=== PATIENT | male | born 1965 | race Caucasian/White ===

== ENCOUNTER → 2018-08-17 | Outpatient (CLI) | payer OTHER ==
--- NOTE | 2018-08-17 12:24 | CT ---
EXAMINATION TYPE: CT chest wo con DATE OF EXAM: 08/17/2018 COMPARISON: NONE HISTORY: Shortness of breath. History of COPD. CT DLP: 666.5 mGycm. Automated Exposure Control for Dose Reduction was Utilized. TECHNIQUE: CT scan of the thorax is performed without IV contrast. FINDINGS: LUNGS: The lungs are grossly clear, there is no concerning parenchymal mass or nodule identified. T here is no pleural effusion or pneumothorax seen. The tracheobronchial tree is patent. There are albert y minimal centrilobular emphysematous changes of the lung apices. MEDIASTINUM: Lack of IV contrast is noted to limit evaluation for mediastinal and especially hilar ad enopathy. There are no definitive greater than 1 cm hilar or mediastinal lymph nodes. No cardiomega ly or pericardial effusion is seen. Aortic root is upper limits of normal size measuring 3.9 cm. OTHER: There is partial visualization of an obstructing right renal pelvic calculus with a staghorn a ppearance measuring up to 1.9 cm with additional branches in the anterior minor calyces measuring 5 m m and 4 mm. There is mild renal sinus fat stranding and blunting of the calyces indicative of mild hy dronephrosis. There appears to be slight anterior cortical renal thinning. Liver is of decreased atte nuation compatible stenosis. IMPRESSION: 1. Partial visualization of an obstructing right renal sinus calculus with a staghorn appearance crat ing renal sinus fat stranding and mild right hydronephrosis. Chronic component is suspected as there appears to be slight anterior cortical renal thinning. 2. No focal consolidation, pleural effusion or pneumothorax and the lungs. Very minimal centrilobular emphysematous changes of the lung apices. 3. Hepatic steatosis.
== END | disposition home or self-care (01) ==
LOC: RADCTMAIN 10:59
PROVIDERS: ATTEND Internal Medicine Pulmonary Disease
DX: N13.2 Hydronephrosis with renal and ureteral calculous obstruction (principal); K76.0 Fatty (change of) liver, not elsewhere classified; G47.30 Sleep apnea, unspecified; G47.33 Obstructive sleep apnea (adult) (pediatric); R60.0 Localized edema; I83.893 Varicose veins of bilateral lower extremities with other complications; R06.02 Shortness of breath; J45.909 Unspecified asthma, uncomplicated; J44.9 Chronic obstructive pulmonary disease, unspecified; E66.01 Morbid (severe) obesity due to excess calories; Z72.0 Tobacco use
CPT/HCPCS: 71250

== ENCOUNTER → 2021-02-19 | Outpatient (CLI) | payer OTHER ==
--- NOTE | 2021-02-19 14:02 | XR ---
EXAMINATION TYPE: XR chest 2V DATE OF EXAM: 02/19/2021 COMPARISON: NONE HISTORY: Shortness of breath TECHNIQUE: Frontal and lateral views of the chest are obtained. FINDINGS: Scattered senescent parenchymal changes noted. Hyperinflation compatible with COPD. No evidence for infiltrate. No evidence for atelectasis. Heart size is stable. Mediastinal structures are stable and grossly unremarkable. No evidence for hilar prominence. Degenerative changes dorsal spine. IMPRESSION: 1. No evidence for acute pulmonary disease.
[2021-02-19 14:04] LABS: Basophils # (A) 0.1 k/uL (0-0.2); Basophils % (A) 1 %; Eosinophils # (A) 0.1 k/uL (0-0.7); Eosinophils % (A) 2 %; HCT 45.2 % (39.0-53.0); HGB 14.5 gm/dL (13.0-17.5); Lymphocytes # (A) 1.8 k/uL (1.0-4.8); Lymphocytes % (A) 24 %; MCH 28.9 pg (25.0-35.0); MCHC 32.1 g/dL (31.0-37.0); MCV 90.3 fL (80.0-100.0); Mean Platelet Volume 7.1; Monocytes # (A) 0.3 k/uL (0-1.0); Monocytes % (A) 4 %; Neutrophils # (A) 4.9 k/uL (1.3-7.7); Neutrophils % (A) 67 %; Platelet Count 208 k/uL (150-450); RDW 14.3 % (11.5-15.5); WBC 7.3 k/uL (3.8-10.6)
[2021-02-19 14:10] LABS: Calcium 9.2 mg/dL (8.4-10.2); Potassium 4.2 mmol/L (3.5-5.1); Total Bilirubin 0.2 mg/dL (0.2-1.3); Total Protein 6.9 g/dL (6.3-8.2)
[2021-02-19 14:57] LABS: Appearance,Urine Clear (Clear); Bilirubin,Urine Negative (Negative); Blood,Urine Trace (Negative); Color,Urine Yellow; Glucose,Urine (UA) 4+ (Negative); Ketones,Urine Negative (Negative); Leukocyte Esterase,Urine Negative (Negative); Mucus,Urine Rare /hpf; Nitrite,Urine Negative (Negative); PH, Urine 5.5 (5.0-8.0); Protein,Urine Negative (Negative); RBC,Urine 9 /hpf (0-5); Specific Gravity,Urine 1.019 (1.001-1.035); Squamous Epithelial Cell,Urine 1 /hpf (0-4); Urobilinogen,Urine <2.0 mg/dL (<2.0); WBC,Urine 4 /hpf (0-5)
== END | disposition home or self-care (01) ==
LOC: LABPAT 13:04
PROVIDERS: ATTEND Urology
DX: Z01.812 Encounter for preprocedural laboratory examination (principal); N20.0 Calculus of kidney; R31.29 Other microscopic hematuria; R06.02 Shortness of breath
CPT/HCPCS: 36415; 71046; 80053; 81001; 85025; 87086

== ENCOUNTER 2021-02-26 07:27 | Day surgery (SDC) | payer OTHER ==
[2021-02-24 09:19] VITALS: BMI 51.6
--- NOTE | 2021-02-25 11:28 | P.GSHP ---
History of Present Illness H&P Date: 02/25/21 55 yo male with a partial staghorn calculous right who come for a right pcnl. Was seen in [facility] er for pain and blood in the urine He was given a variety of treatment options. He comes for a right pcnl The risks and complications including infection, bleeding injury to kidney and adjacent organs, multiple treatments failure to access the kidney due to his obesity He comes for this procedure. - Constitutional Constitutional: Denies chills, Denies fever - EENT Eyes: denies blurred vision, denies pain Ears, nose, mouth and throat: Denies headache, Denies sore throat - Cardiovascular Cardiovascular: Denies chest pain, Denies shortness of breath - Respiratory Respiratory: Denies cough, Denies 7 - Gastrointestinal Gastrointestinal: Denies abdominal pain, Denies diarrhea, Denies nausea, Denies vomiting - Genitourinary (Female) Genitourinary: Denies dysuria, Denies hematuria - Genitourinary (Male) Genitourinary: Denies dysuria, Denies hematuria - Musculoskeletal Musculoskeletal: Denies myalgias - Integumentary Integumentary: Denies pruritus, Denies rash - Neurological Neurological: Denies numbness, Denies weakness - Psychiatric Psychiatric: Denies anxiety, Denies depression - Endocrine Endocrine: Denies fatigue, Denies weight change Past Medical History Past Medical History: Diabetes Mellitus, Sleep Apnea/CPAP/BIPAP Additional Past Medical History / Comment(s): hx migraines, no cpap used, states he is to start in oral diabetic meds but has not picked them up yet from pharmacy, kidney stones, History of Any Multi-Drug Resistant Organisms: None Reported Past Surgical History: Orthopedic Surgery Additional Past Surgical History / Comment(s): circumcision as child, surgery rt elbow for torn tendon Past Anesthesia/Blood Transfusion Reactions: No Reported Reaction Smoking Status: Current every day smoker - Past Family History Mother Family Medical History: No Reported History Medications and Allergies Home Medications Medication Instructions Recorded Confirmed Type Multivitamins, Thera [Multivitamin 1 tab PO DAILY 02/24/21 02/24/21 History (formulary)] Naproxen Sodium [Aleve] 220 mg PO Q12HR 02/24/21 02/24/21 History Allergies Allergy/AdvReac Type Severity Reaction Status Date / Time No Known Allergies Allergy Verified 02/24/21 09:09 Surgical - Exam - General well developed, well nourished, obese - Eyes PERRL - ENT no hearing loss - Neck no masses, no bruits - Respiratory normal expansion, normal respiratory effort - Cardiovascular Rhythm: regular - Abdomen protuberant Abdomen: soft, non tender - Genitourinary normal penis with no external lesions, testicles present - Integumentary no rash, no growths - Neurologic normal coordination, normal sensation - Musculoskeletal normal gait, normal posture - Psychiatric oriented to time, oriented to person, oriented to place, speech is normal, memory intact Results - Imaging CT scan - abdomen: report reviewed, image reviewed CT scan - pelvis: report reviewed, image reviewed Assessment and Plan Assessment: Impression: Right partial staghorn calculous[large], morbid obesity Plan: Pcnl right
[~2021-02-26 07:27] MED LIST: DEXAMETHASONE SOD PHOSPHATE 4 MG/ML 1 ML VIAL IV ONE; HYDROmorphone 0.5 MG/0.5 ML SYRINGE IVP PRN; LIDOCAINE 1% (10MG/ML) FOR IV START INTRADERMA PRN; MIDAZOLAM 2 MG/2 ML VIAL IV PRN; ONDANSETRON 4 MG/2 ML VIAL IVP ONE
--- NOTE | 2021-02-26 07:48 | XR ---
EXAMINATION TYPE: XR KUB DATE OF EXAM: 02/26/2021 7:41 AM CLINICAL HISTORY: Kidney stones TECHNIQUE: Single supine KUB image of the abdomen is obtained. COMPARISON: None. FINDINGS: Scattered gas is seen in non-distended small bowel loops. Gas and fecal material is seen in non-distended colon. There are radiopaque densities overlying the right renal shadow and expected location of the right re nal hilum measuring up to 2.3 cm which most likely represent nephrolithiasis. The left lateral abdome n and upper abdomen are excluded. IMPRESSION: Likely significant right nephrolithiasis. Overall nonobstructive bowel gas pattern.
[2021-02-26 08:28] LABS: Glucose,Whole Blood 168 mg/dL (75-99)
[2021-02-26] MEDS: LACTATED RINGERS 1,000 ML IV SCH ×2 (08:42→22:08)
[2021-02-26] MEDS ORDERED: PROPOFOL 10 MG/ML 20 ML VIAL IV ONE (08:56)
[2021-02-26] MEDS ORDERED: HYDROmorphone (PF) 1 MG/ML ONE (08:56)
[2021-02-26] MEDS ORDERED: GLYCOPYRROLATE 0.2 MG/ML 2 ML VIAL ONE (08:56)
[2021-02-26] MEDS ORDERED: NEOSTIGMINE 1 MG/ML 10 ML VIAL ONE (08:56)
[2021-02-26] MEDS ORDERED: fentaNYL (PF) 50 MCG/ML 2 ML AMP ONE (08:56)
[2021-02-26] MEDS ORDERED: ROCURONIUM 10 MG/ML (5 ML VIAL) IV ONE (08:56)
[2021-02-26] MEDS ORDERED: SUCCINYLCHOLINE CHLORIDE VIAL 200 MG/10 ML VIAL IV ONE (08:56)
[2021-02-26] MEDS ORDERED: LIDOCAINE 1% INJ 10MG/ML (20 ML MDV) ONE (08:56)
[2021-02-26] MEDS ORDERED: MIDAZOLAM 2 MG/2 ML VIAL ONE (08:56)
[2021-02-26] MEDS ORDERED: IOHEXOL 350 MG/ML 50 ML in EMPTY BAG 1 BAG IRRIGATION ONE (09:49)
[2021-02-26] MEDS ORDERED: LACTATED RINGERS 1,000 ML IV ONE (11:26)
[2021-02-26] MEDS ORDERED: ONDANSETRON 4 MG/2 ML VIAL IVP PRN (11:46)
[2021-02-26] MEDS ORDERED: ACETAMINOPHEN TAB 325 MG TAB PO PRN (11:46)
[2021-02-26] MEDS ORDERED: MAG HYDROX/AL HYDROX/SIMETH 30 ML CUP PO PRN (11:46)
[2021-02-26] MEDS ORDERED: KETOROLAC 15 MG/ML 1 ML VIAL IVP PRN (11:47)
[2021-02-26] MEDS ORDERED: NALOXONE 0.4 MG/ML 1 ML VIAL IV PRN (11:47)
[2021-02-26] MEDS ORDERED: HYDROmorphone PCA 10 MG/50 ML BAG IV PRN (11:47)
--- NOTE | 2021-02-26 11:52 | P.OP ---
Date of Procedure: 02/26/21 Preoperative Diagnosis: Left renal stone large Postoperative Diagnosis: Same Procedure(s) Performed: Cystoscopy, placement of 5-[place] occluding balloon catheter right, percutaneous nephrostomy (Dr. Soto) percutaneous nephrostolithotomy with ultrasound, 10- [place] J nephrostomy Anesthesia: PAUL Surgeon: Geo Hall Estimated Blood Loss (ml): 200 Pathology: other (Stone) Condition: stable Disposition: PACU Indications for Procedure: The patient is a 55-year-old morbidly obese gentleman who comes with a partial staghorn calculus greater than 2 cm in diameter for left percutaneous nephrostolithotomy the risks and complications been outlined. He understands access may be difficult due to his morbid obesity (5 foot 6/320 pounds) Description of Procedure: Patient brought them pain suite. He is given a general endotracheal anesthesia on the transport gurney. He's placed in a frog position. Cystoscopy Foroblique lens and 21-[place] sheath identifies a normal urethra. The prostate is not obstructing. The right ureteral orifice is identified and intubated with a 5- [place] occluding balloon catheter passed up the renal pelvis. The cystoscope removed. He requires a 14-[place] coud-tip catheter to go alongside the ureteral catheter The patient is placed in prone position with care to airways and extremities. We make sure retention due to his severely enlarged habitus. A sterile prep and draped is administered. Dr. Soto performed percutaneous access to a right middle pole calyx of. Labral dilate the tract to 30-[place]. With the sheath in the collecting system I see the large renal stone. With ultrasound the stone was broken into smaller pieces and removed either with suction or grasping forceps. The satellite stones are followed into each calyx and removed with ultrasound or grasping forceps. At the end of the procedure there no remaining stones visually endoscopically nor fluoroscopically. A 10-[place] J nephrostomy tubes placed. It is secured the skin with 2-0 silk. The wound is dressed the patient's awake and returned recovery room good condition. He tolerated the procedure well. Blood loss is approximately 200 mL. He'll be placed in the hospital postoperatively.
[2021-02-26 12:34] LABS: Glucose,Whole Blood 207 mg/dL (75-99)
[2021-02-26] MEDS ORDERED: INSULIN ASPART (NovoLOG) 100 UNIT/ML VIAL SQ ONE (12:56)
[2021-02-26] MEDS: DEXTROSE 5%-0.45% NACL 1,000 ML IV SCH ×2 (14:27→21:42)
--- NOTE | 2021-02-26 15:32 | FL ---
EXAMINATION TYPE: FL Perc Nephrostomy New Access DATE OF EXAM: 02/26/2021 COMPARISON: NONE HISTORY: Right-sided kidney stones PROCEDURE: Maximal barrier technique was utilized, hand hygiene obtained with soap and water and alcohol-based h and rub. The skin overlying the right kidney was localized using fluoroscopy and the overlying skin prepped and draped. Skin bettie was made with a scalpel. Access was gained under fluoroscopy, followin g placement of a ureteral occlusion balloon by the referring clinician and instillation of air in the renal collecting system with a 21-gauge needle to the right kidney lower pole. A suitable posterior calyx was chosen. A 0.018 inch wire was advanced but could not be advanced centrally. Attention di rected towards the upper pole which was not successively punctured. Attention directed to the posteri or midpole calyx. Using similar technique access was gained to the calyx with a 21-gauge needle and t he 0.018 inch wire was advanced. The access site was dilated , access site was upsized, safety wire d eployed and subsequently a sheath was advanced into the renal pelvis following dilation with balloon along the tract. The patient underwent nephrolithotomy by the referring clinician. The patient dilshad ined in stable condition without complication. The patient was discharged to observation in the care of anesthesia. 10 intraoperative C-arm images document the procedure. 12 minutes 19 seconds fluoroscopy time. IMPRESSION: STATUS POST NEPHROSTOMY PLACEMENT FOR NEPHROLITHOTOMY WITH FLUOROSCOPIC GUIDANCE. THIS PROCEDURE PER FORMED BY THE UNDERSIGNED.
[2021-02-27] MEDS ORDERED: HYDROcodone/APAP 5-325MG 1 EACH TAB PO PRN (07:38)
--- NOTE | 2021-02-27 07:38 | P.DS ---
Providers Attending physician: Geo Hall Primary care physician: [facility] Course: The patient is a 76. A partial staghorn calculus on the right side. He underwent a percutaneous nephrostolithotomy yesterday. He did well overnight. His pain is reasonably under control. His urine is clear in the bladder. There is some old blood in the nephrostomy tube. His abdomen is soft. He'll ambulate this morning. If his pain is controlled he'll be discharged home later today and follow in the office next week for nephrostomy tube removal. Diet is regular activities Limited. A be given a prescription of [place]. His condition is good. Patient Condition at Discharge: Good Plan - Discharge Summary Discharge Rx Participant: Yes New Discharge Prescriptions: New HYDROcodone/APAP 5-325MG [[place] 5-325] 1 tab PO Q4HR PRN 3 Days #10 tab PRN Reason: Pain Control No Action Multivitamins, Thera [Multivitamin (formulary)] 1 tab PO DAILY Naproxen Sodium [Aleve] 220 mg PO Q12HR Discharge Medication List Multivitamins, Thera [Multivitamin (formulary)] 1 tab PO DAILY 02/24/21 [History] Naproxen Sodium [Aleve] 220 mg PO Q12HR 02/24/21 [History] HYDROcodone/APAP 5-325MG [[place] 5-325] 1 tab PO Q4HR PRN 3 Days #10 tab 02/27/21 [Rx] Follow up Appointment(s)/Referral(s): Geo Hall MD [STAFF PHYSICIAN] - 03/03/21 Discharge Disposition: HOME SELF-CARE
[2021-02-27 07:49] VITALS: BP 123/71; PULSE 94; RESP 18; TEMP 97.7
== END 2021-02-27 10:57 | disposition home or self-care (01) ==
LOC: OR 07:27 → 6NMEDSUR 12:11 → OR 02-27 10:57
PROVIDERS: ATTEND Urology
DX: N20.0 Calculus of kidney (principal); G47.33 Obstructive sleep apnea (adult) (pediatric); F17.210 Nicotine dependence, cigarettes, uncomplicated; E11.9 Type 2 diabetes mellitus without complications; G43.909 Migraine, unspecified, not intractable, without status migrainosus; E66.01 Morbid (severe) obesity due to excess calories
CPT/HCPCS: 50080; 50436; 94660; 86900; 86901; 86850; 82365; 50432; 74018; C1769 ×4; C2628; C1894; C1729; J2250; J0330; J1100; J2710; J0690; J2405; J2001; J3010; J1170; J1885; J2704; Q9967

== ENCOUNTER → 2023-03-04 | Outpatient (CLI) | payer OTHER ==
--- NOTE | 2023-03-04 07:59 | CTL ---
EXAMINATION TYPE: CT Low Dose Lung DATE OF EXAM ORDERED: 03/04/2023 HISTORY: Tobacco use. Current smoker, 20 pack year history. Lung cancer screening CT DLP: 113.[address] CTDI: 3.4 mGy Automated exposure control for dose reduction was used. SCREENING VISIT: First screening visit COMPARISON: CT chest 08/17/2018 TECHNIQUE: Low dose computed tomography scan was performed through the chest at 1 mm thick sections a nd reconstructed images in multiple planes at 1 mm and [address] DIAGNOSTIC QUALITY: Satisfactory FINDINGS: LUNG NODULES: No clinically significant pulmonary nodules. LUNGS: COPD: Severity: Mild centrilobular emphysematous changes Fibrosis: Severity: None Lymph nodes: None Other findings: None RIGHT PLEURAL SPACE: Effusion: None Calcification: None Thickening: None Pneumothorax: None LEFT PLEURAL SPACE: Effusion: None Calcification: None Thickening: None Pneumothorax: None HEART: Heart Size: Normal Coronary Calcification: None Pericardial Effusion: None OTHER FINDINGS: Upper abdomen: None Bony thorax: None Supraclavicular region: None Other: None IMPRESSION: 1. No clinically significant pulmonary nodules. 2. Mild COPD changes. CT LUNG RAD AND CT CHEST RECOMMENDATION: Lung-Rad 1 Negative: Continue annual screening with LDCT in 12 months. S Modifier (other clinically significant findings): None
== END | disposition home or self-care (01) ==
LOC: RADCTMAIN 06:33
PROVIDERS: ATTEND Internal Medicine
DX: Z12.2 Encounter for screening for malignant neoplasm of respiratory organs (principal); F17.210 Nicotine dependence, cigarettes, uncomplicated; J44.9 Chronic obstructive pulmonary disease, unspecified
CPT/HCPCS: 71271